=== PATIENT | female | born 1935 | race Two or more races ===

== ENCOUNTER 2020-12-11 06:55 | Emergency (ER) | payer OTHER ==
[~2020-12-11] VITALS: Ht 162.6 cm; Wt 87.5 kg
[2020-12-11] MEDS ORDERED: SYNTHROID75 MCG (07:09)
[2020-12-11] MEDS ORDERED: NEURONTIN300 MG (07:09)
[2020-12-11] MEDS ORDERED: SIMVASTATIN5 MG (07:09)
[2020-12-11] MEDS ORDERED: HORIZANT300 MG PO (12:23)
[2020-12-11] MEDS ORDERED: VALACYCLOVIR1000 MG PO (12:23)
[2020-12-11] MEDS ORDERED: VOLTAREN-XR100 MG PO (12:23)
== END 2020-12-11 12:45 | disposition home or self-care (01) ==
LOC: ER 06:55
DX: B02.9 Zoster without complications (principal)

== ENCOUNTER → 2022-03-03 | Emergency (ER) | payer OTHER ==
[~2022-03-03] VITALS: Ht 162.6 cm; Wt 86.2 kg
[~2022-03-03] MED LIST: HORIZANT300 MG PO; NEURONTIN300 MG; SIMVASTATIN5 MG; SYNTHROID75 MCG; VALACYCLOVIR1000 MG PO; VOLTAREN-XR100 MG PO
== END | disposition home or self-care (01) ==
LOC: ER 15:56
DX: S09.90XA Unspecified injury of head, initial encounter (principal)

== ENCOUNTER 2024-01-30 12:41 | Emergency (ER) | payer OTHER ==
[~2024-01-30] VITALS: Ht 152.4 cm; Wt 79.4 kg
[2024-01-30] MEDS ORDERED: TIROSINT88 MCG PO (13:01)
[2024-01-30] MEDS ORDERED: PRAVASTATIN SOD10 MG PO (13:01)
[2024-01-30] MEDS ORDERED: ARICEPT5 MG PO (13:02)
[2024-01-30] MEDS ORDERED: INDAPAMIDE1.25 MG PO (13:02)
[2024-01-30] MEDS ORDERED: CETIRIZINE1 MG/1 ML PO (13:02)
[2024-01-30] MEDS ORDERED: GALANTAMINE4 MG/1 ML PO (13:03)
[2024-01-30] MEDS ORDERED: GRALISE600 MG PO (13:03)
[2024-01-30] MEDS ORDERED: PEPCID AC20 MG PO ×2 (13:03→22:28)
[2024-01-30] MEDS ORDERED: 0.9 % SODIUM CHLORIDE 1,000 ML IV STA (14:17)
[2024-01-30 16:01] LABS: HEMATOCRIT 39.3 % (36.0-45.00); HEMOGLOBIN 13.5 g/dL (12.0-15.00); MEAN CELL VOLUME 93.6 fL (80.00-100.00); MEAN CORPUSCULAR HEMOGLOBIN 32.1 pg (27.00-32.0); MEAN CORPUSCULAR HGB CONC 34.3 g/dl (32.0-36.0); PLATELET COUNT 203 K/uL (150-450); RED CELL DISTRIBUTION WIDTH 13.6 % (11.5-14.5)
[2024-01-30 16:28] LABS: CALCIUM 9.3 mg/dL (8.5-10.1); CREATININE SERUM 1.1 mg/dL (0.55-1.02); GFR 46.87; POTASSIUM 3.97 mEq/L (3.5-5.1)
[2024-01-30] MEDS ORDERED: FAMOTIDINE/PF 20 MG/2 ML VIAL IV ONE (16:30)
[2024-01-30] MEDS ORDERED: ONDANSETRON HCL 2 MG/ML VIAL IV ONE (16:30)
[2024-01-30 17:12] LABS: PH,URINE 5.5 (5.0-8.0); URINE APPEARANCE Clear; URINE BILIRRUBIN Negative (NEGATIVE); URINE BLOOD Trace; URINE COLOR Yellow; URINE GLUCOSE Negative (NEGATIVE); URINE LEUKOCYTE Small; URINE NITRATE Negative; URINE PROTEIN Negative (NEGATIVE); URINE UROBILINOGEN 0.2 E.U./dl
[2024-01-30 17:21] LABS: URINE EPITHELIAL CELLS 10.6 uL (0.0-38.8); URINE RBC 6.7 uL (0.0-20.8); URINE WBC 129.2 uL (0.0-23.2)
[2024-01-30 17:34] LABS: URINE BACTERIA > 9821.5 uL (0.0-1933)
[2024-01-30 19:03] LABS: ABG PO2 65.1 mmHg (80-100); ABG pCO2 53.4 mmHg (35-45); BASE EXCESS 2.8 mmol/l; BICARBONATE 29.5 mmol/l (23-25); SaO2 91.7 %; Tco2 31.1 mmol/l; allen test SATISFACTORY; o2 21 %; puncture site RADIAL RIGHT
[2024-01-30] MEDS ORDERED: ONDANSETRON ODT8 MG PO (22:28)
== END 2024-01-30 22:39 | disposition home or self-care (01) ==
LOC: ER 12:41
PROVIDERS: General Practice
DX: K52.89 Other specified noninfective gastroenteritis and colitis (principal); I10 Essential (primary) hypertension; Z20.822 Contact with and (suspected) exposure to COVID-19
CPT/HCPCS: 36415; 71045; 71250; 82803; 96365; 99284; J2405; J3490